=== PATIENT | male | born 1970 | race Caucasian/White ===

== ENCOUNTER → 2017-08-27 | Outpatient (CLI) | payer OTHER ==
--- NOTE | 2017-09-06 22:13 | ONC ---
[place] [address] RADIATION ONCOLOGY NOTE Name: MARIE PALMA Room: [facility].#: [id number] Admission: 08/27/17 Attend Phys: Jamaal Perkins MD Discharge: Date of : 74 Report #: [id number] THIS REPORT FOR: //name// CC: Jamaal Calderon DATE OF SERVICE: 08/27/2017 REFERRING PHYSICIANS: Nena Ortega MD, Axel Larsen MD and Maurice Peterson MD [facility] phone is [phone]. PRIMARY SITE AND HISTOPATHOLOGY: The patient received neoadjuvant chemoradiotherapy for rectal cancer and the radiation therapy was completed on 05/30/2016. The patient underwent an abdominoperineal resection on 08/02/2016. The pathology revealed moderately differentiated adenocarcinoma of the rectum. The rectal cancer was about 5 cm from the anal verge and 3 out of 17 lymph nodes were involved with cancer, so it was a T3N1b adenocarcinoma of the rectum. He then went on to receive additional chemotherapy with Dr. Reed. INTERVAL NOTE: The patient has a colostomy bag and he changes the colostomy bag about once a day. He had a colonoscopy on 06/23/2017 with his cane splicer, Dr. Peterson, which showed a normal appearing colon and he was going to have him return in about 3 years. 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 He says that his primary care physician, Dr. Calderon gives him his refills. The patient has some issues with urinary incontinence and so he is taking oxybutynin that Dr. Larsen had prescribed for him. SOCIAL HISTORY: The patient has tried to quit smoking, but he is still smoking about 1/4 pack per day and has done so since about 1989. REVIEW OF SYSTEMS: GASTROINTESTINAL: He has a good appetite. He changes his colostomy bag about every day. GENITOURINARY: He has some urinary incontinence at night and takes oxybutynin and follows up with Dr. Larsen with that issue. PHYSICAL EXAMINATION: VITAL SIGNS: The patient weighed 191.4 pounds on 08/27/2017 and 189.2 pounds on 04/21/2017. On 08/27/2017 blood pressure was 98/67, pulse 81, respiration, oxygen 96%. [place] [address] RADIATION ONCOLOGY NOTE Name: MARIE PALMA Room: [facility]#: [id number] Admission: 08/27/17 Attend Phys: Jamaal Perkins MD Discharge: Date of : 74 Report #: [id number] HEART: Had a regular rate and rhythm without murmur. LUNGS: were clear to auscultation. ABDOMEN: Soft and not tender. Colostomy bag was in place. PELVIS: On pelvic examination, perineal scar was well healed. LABORATORY DATA: From 08/13/2017, CEA level was 1.5, which was within normal limits. Sodium was 138, potassium 4.2, BUN 14, creatinine 0.88, ALT was 16 and AST 18. White blood count 7.1, hemoglobin 16.4 and platelets 185,000. RADIOLOGIC DATA: The patient had a chest, abdomen, and pelvic CT on 08/13/2017. The chest had no evidence of metastatic disease. Abdomen and pelvic CT showed some presacral thickening consistent with scarring after treatment, but no evidence of recurrent mass or abdominal pelvic adenopathy. ASSESSMENT AND PLAN: 1. History of rectal cancer- There is no evidence of rectal cancer at this time. The patient has an appointment with his medical oncologist, Dr. Reed, on 12/02/2017. The patient also has lab work and a CT scan scheduled around that time. I ordered a CEA level, complete metabolic panel and complete blood count around 04/2018 and asked the patient to schedule a follow up appointment with me afterwards. 2. Urinary incontinence- The patient is taking gabapentin and he is following up with his urologist, Dr. Larsen, with regards to that issue. 3. Depression- He takes Zoloft 50 mg a day and Xanax as needed and that seems to take care of that issue and his primary care physician, Dr. Calderon is managing his medication for that issue. Thank you for allowing me to participate in the care of this patient. <ELECTRONICALLY SIGNED> By: Jamaal Perkins MD 09/06/17 [id number] Perkins MD /nt
== END ==
LOC: M.RTH 08-15 09:00
DX: F32.9 Major depressive disorder, single episode, unspecified (principal); R32 Unspecified urinary incontinence; Z85.048 Personal history of other malignant neoplasm of rectum, rectosigmoid junction, and anus